=== PATIENT | male | born 1935 | race Caucasian/White ===

== ENCOUNTER 2018-10-24 03:06 | Emergency (ER) | payer MEDICARE, OTHER ==
[2018-10-24] MEDS ORDERED: HYDROcodone/Acetaminophen 5/325 mg Tablet ONE (04:11)
[2018-10-24] MEDS ORDERED: Ketorolac Tromethamine 30 MG/ML VIAL ONE (04:11)
--- NOTE | 2018-10-24 07:38 | RAD ---
CHEST 2 VIEWS: Date: 10/24/18 INDICATION: Pain. COMPARISON: None. FINDINGS: There are low lung volumes. There is mild suspected bibasilar atelectasis. Heart size is within tyrone l limits. No acute osseous abnormality is evident. IMPRESSION: Hypoventilation with bibasilar atelectasis. No definite acute abnormality. POS: BH
== END 2018-10-24 04:50 | disposition home or self-care (01) ==
LOC: MADERS 03:06
DX: S29.011A Strain of muscle and tendon of front wall of thorax, initial encounter (principal); I10 Essential (primary) hypertension; Z79.899 Other long term (current) drug therapy; X50.1XXA Overexertion from prolonged static or awkward postures, initial encounter
CPT/HCPCS: 71046; 96372; J1885

== ENCOUNTER 2019-05-12 10:42 | Emergency (ER) | payer MEDICARE, OTHER ==
[2019-05-12 11:33] LABS: #Basophils 0.1 thou/uL (0.0-0.2); #Lymphocytes 1.6 thou/uL (1.20-3.40); #Monocytes 0.8 thou/uL (0.11-0.59); %Basophils 0.4 % (0.0-1.0); %Eosinophils 0.2 % (0.0-10.0); %Lymphocytes 9.7 % (21.0-51.0); %Monocytes 4.8 % (0.0-10.0); %Neutrophils 84.9 % (42.0-75.0); Mean Corpuscular HGB CONC 31.7 g/dL (32.0-36.0); Mean Corpuscular Hemoglobin 27.6 pg (27.0-31.0); Mean Corpuscular Volume 87.1 fL (78.0-98.0); Mean Platelet Volume 6.1 fL (7.4-10.4); Platelet Count 325 thou/uL (130-400); RBC Distribution Width 12.7 % (11.5-14.5); Red Blood Cell (RBC) Count 4.34 mill/uL (4.70-6.10); White Blood Cell (WBC) Count 16.5 thou/uL (4.8-10.8)
[2019-05-12 11:46] LABS: ALT (SGPT) 30 U/L (8-55); AST (SGOT) 16 U/L (5-34); Albumin 3.7 g/dL (3.4-4.8); Alkaline Phosphatase 181 U/L (40-150); Anion Gap 15 mmol/L (10-20); BUN (Urea Nitrogen) 22 mg/dL (8.4-25.7); Bilirubin, Total 0.5 mg/dL (0.2-1.2); Calc. Creatinine Clearance 0 mL/min (70-130); Calcium 9.2 mg/dL (7.8-10.44); Carbon Dioxide 26 mmol/L (23-31); Chloride 104 mmol/L (98-107); Estimated GFR-MDRD 76; Globulin 3.9 g/dL (2.4-3.5); Glucose 106 mg/dL (83-110); Potassium 3.9 mmol/L (3.5-5.1); Protein, Total 7.6 g/dL (5.8-8.1); Sodium 141 mmol/L (136-145)
[2019-05-12] MEDS ORDERED: Aspirin Chewable 81 MG TAB ONE (12:10)
--- NOTE | 2019-05-12 12:17 | CT ---
BRAIN CT WITHOUT IV CONTRAST: Date: 05/12/19 HISTORY: Disoriented, [id number], difficulty walking. FINDINGS: Atrophy and chronic white matter ischemic change. No focal mass or midline shift. No intra or extra-a xial hemorrhage. Sinuses and mastoids are clear of acute process. IMPRESSION: Atrophy and chronic white matter ischemic changes. No mass or bleed, or other acute process. POS: OFF
--- NOTE | 2019-05-12 12:18 | RAD ---
2 VIEWS CHEST: Date: 05/12/19 COMPARISON: 10/24/18. HISTORY: Unsteadiness. FINDINGS: There is no pneumothorax or pleural fluid. No focal consolidation or alveolar edema. Heart and medias tinal contours are stable. There is increased linear interstitial density. There is multilevel degene rative change noted within the thoracic spine with disc space narrowing, degenerative end plate ca e, and prominent anterior osteophyte formation. IMPRESSION: Chronic findings as detailed above. No acute findings. POS: TPC
[2019-05-12] MEDS ORDERED: Meclizine HCl 25 MG TAB ONE (16:40)
[2019-05-12] MEDS ORDERED: Ondansetron PF 4 MG/2 ML Vial ONE (16:40)
== END 2019-05-12 14:32 | disposition short-term general hospital (02) ==
LOC: MADERS 10:42
DX: R26.0 Ataxic gait (principal); I10 Essential (primary) hypertension; Z79.899 Other long term (current) drug therapy
CPT/HCPCS: 70450; 71046; 80053; 84484; 85025; 93005; J2405; J8597

== ENCOUNTER 2025-05-30 15:51 | Outpatient (CLI) | payer MEDICARE, OTHER ==
[2025-05-30 15:56] LABS: #Basophils 0.1 thou/uL (0.0-0.2); #Eosinophils 0.1 thou/uL (0.0-0.7); #Lymphocytes 1.7 thou/uL (1.20-3.40); #Monocytes 0.6 thou/uL (0.11-0.59); #Neutrophils 8.1 thou/uL (1.40-6.50); %Basophils 0.8 % (0.0-1.0); %Eosinophils 1.1 % (0.0-10.0); %Lymphocytes 15.8 % (21.0-51.0); %Monocytes 6.0 % (0.0-10.0); %Neutrophils 76.2 % (42.0-75.0); Hematocrit 32.5 % (42.0-52.0); Hemoglobin 9.9 g/dL (14.0-18.0); Mean Corpuscular Hemoglobin 25.6 pg (27.0-31.0); Mean Corpuscular Volume 83.8 fl (78.0-98.0); Platelet Count 470 10x3/uL (130-400); Red Blood Cell (RBC) Count 3.88 mill/uL (4.70-6.10); White Blood Cell (WBC) Count 10.6 10x3/uL (4.8-10.8)
[2025-05-30 16:13] LABS: ALT (SGPT) 9 U/L (Less than 45); AST (SGOT) 21 U/L (11-34); Albumin 2.4 g/dL (3.1-4.5); Alkaline Phosphatase 308 U/L (40-110); Anion Gap 20 mmol/L (10-20); BUN (Urea Nitrogen) 21 mg/dL (8.4-25.7); Bilirubin, Total 0.6 mg/dL (0.3-1.2); Calc. Creatinine Clearance 0 mL/min (70-130); Calcium 8.0 mg/dL (7.8-10.44); Carbon Dioxide 17 mmol/L (23-31); Chloride 107 mmol/L (98-107); Globulin 4.9 g/dL (2.4-3.5); Glucose 80 mg/dL (83-110); Potassium 4.8 mmol/L (3.5-5.1); Sodium 139 mmol/L (136-145)
[2025-05-30 16:27] LABS: Thyroid Stimulating Hormone 0.0305 uIU/mL (0.35-4.94)
[2025-05-31 03:12] LABS: Free T4 (Free Thyroxine) 1.07 ng/dL (0.70-1.48)
== END 2025-05-30 15:52 | disposition home or self-care (01) ==
LOC: MADLAB 15:51
PROVIDERS: ATTEND Family Medicine
DX: L89.153 Pressure ulcer of sacral region, stage 3 (principal)
CPT/HCPCS: 80053; 84439; 84443; 85025